=== PATIENT | male | born 1985 ===

== ENCOUNTER → 2022-09-22 | Outpatient (CLI) | payer OTHER | LOC: MHCPAIN 09:13 | DX: M47.897 Other spondylosis, lumbosacral region (principal); M54.16 Radiculopathy, lumbar region; M51.36 Other intervertebral disc degeneration, lumbar region | CPT/HCPCS: G0463 ==

== ENCOUNTER → 2022-10-07 | Outpatient (CLI) | payer OTHER | LOC: MHCPAIN 08:10 | DX: M47.816 Spondylosis without myelopathy or radiculopathy, lumbar region (principal); M54.16 Radiculopathy, lumbar region | CPT/HCPCS: J1100; Q9967 ==